=== PATIENT | male | born 1955 | race Caucasian/White ===

== ENCOUNTER → 2017-09-26 09:28 | Outpatient (CLI) | payer BC | END | disposition home or self-care (01) | LOC: D.RAD 09:28 | DX: R91.1 Solitary pulmonary nodule (principal); Z86.11 Personal history of tuberculosis ==

== ENCOUNTER → 2018-02-15 08:11 | Outpatient (CLI) | payer BC | END | disposition home or self-care (01) | LOC: D.CT 08:11 | DX: R91.8 Other nonspecific abnormal finding of lung field (principal) ==